=== PATIENT | female | born 1960 | race Caucasian/White ===

== ENCOUNTER 2022-09-02 12:08 | Outpatient (RCR) | payer OTHER, SELFPAY | END 2022-09-03 07:56 | disposition home or self-care (01) | LOC: HO.WCC 12:08 | PROVIDERS: PCP Internal Medicine; Visit Provider Physician Assistant | DX: Z09 Encounter for follow-up examination after completed treatment for conditions other than malignant neoplasm (principal); L84 Corns and callosities; E11.618 Type 2 diabetes mellitus with other diabetic arthropathy; M79.672 Pain in left foot; M79.671 Pain in right foot | CPT/HCPCS: 11056; 99213 ==